=== PATIENT | male | born 1985 | race African-American/Black ===

== ENCOUNTER 2019-09-19 09:01 | Emergency (ER) | payer SELFPAY ==
[~2019-09-19] VITALS: Ht 172.7 cm; Wt 86.2 kg
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
[2019-09-19] MEDS: HYDROcodone/APAP 5/325MG 1 TAB TABLET PO ONE (11:51)
[2019-09-19] MEDS: IBUPROFEN 200 MG TABLET. PO ONE (11:51)
[2019-09-19] MEDS: ORPHENADRINE CITRATE 60 MG/2 ML VIAL. IM ONE (11:52)
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
--- NOTE | 2019-09-19 11:54 | RAD ---
ANKLE RIGHT 3V 09/19/2019 11:21 AM INDICATION: Pain COMPARISON: None available. TECHNIQUE: 3 views of the right ankle are provided. FINDINGS/ IMPRESSION: There is no acute fracture or dislocation. Joint spaces are maintained. Bone mineralization is within normal limits. Regional soft tissues are within normal limits. There is no soft tissue gas or osseous erosion. No radiopaque foreign body. Posterior and plantar calcaneal enthesophytes are present. Electronically signed by: Olivia Greenberg MD (09/19/2019 11:51 AM) [facility]
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
[2019-09-19] MEDS ORDERED: HYDR-3164 PO (12:10)
[2019-09-19] MEDS ORDERED: ORPH100T PO (12:10)
[2019-09-19] MEDS ORDERED: IBUP-1007 PO (12:10)
[2019-09-19] MEDS: cloNIDine HCL 0.1 MG TABLET PO ONE (12:34)
[2019-09-19 13:01] VITALS: BP 188/127
--- NOTE | 2019-09-19 15:48 | EKG ---
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
== END 2019-09-19 13:01 | disposition home or self-care (01) ==
LOC: ER 09:01
DX: M54.2 Cervicalgia (principal); M25.511 Pain in right shoulder; M79.671 Pain in right foot; M25.571 Pain in right ankle and joints of right foot; R07.89 Other chest pain; R51 Headache; V89.2XXA Person injured in unspecified motor-vehicle accident, traffic, initial encounter; Y93.89 Activity, other specified; Y92.89 Other specified places as the place of occurrence of the external cause; Y99.8 Other external cause status
CPT/HCPCS: 70450; 71046; 72125; 73030; 73610; 93005; 96372; 99284; J2360

== ENCOUNTER 2019-09-21 14:47 | Inpatient (IN) | payer SELFPAY ==
[~2019-09-21] VITALS: Ht 170.2 cm; Wt 92.2 kg
[~2019-09-21 14:47] MED LIST: HYDR-3164 PO; IBUP-1007 PO; ORPH100T PO
[2019-09-21] MEDS ORDERED: LABETALOL 20 MG/4 ML DISP.SYRIN. IVP ONE (15:45)
[2019-09-21 15:53] LABS: BASO % 1 % (0-3); EOS # 0.2 x10^3/uL (0.0-0.7); EOS % 3 % (0-3); HEMATOCRIT 46.4 % (39.0-53.0); HEMOGLOBIN 15.1 g/dL (13.0-17.5); LYMPH # 2.1 x10^3/uL (1.0-4.8); LYMPH % 32 % (24-48); MEAN CORPUSCULAR HEMOGLOBIN 25 pg (25-35); MEAN CORPUSCULAR HGB CONC 33 g/dL (31-37); MEAN CORPUSCULAR VOLUME 77 fL (79-100); MONO # 0.3 x10^3/uL (0.0-1.1); MONO % 5 % (0-9); NEUT # 3.8 x10^3/uL (1.8-7.7); NEUT % 60 % (31-73); PLATELET COUNT 303 x10^3/uL (140-400); RED BLOOD COUNT 5.99 x10^6/uL (4.30-5.70); RED CELL DISTRIBUTION WIDTH 14.3 % (11.5-14.5); WHITE BLOOD COUNT 6.4 x10^3/uL (4.0-11.0)
--- NOTE | 2019-09-21 15:57 | RAD ---
PORTABLE CHEST 1V History: Hypertension Comparison: September 19, 2019 Findings: Single view of the chest is submitted. There is no infiltrate, pneumothorax, or effusion. The pericardial cardiac silhouette is within normal limits in size. Impression: 1. There is no radiographic evidence of acute cardiopulmonary disease. Electronically signed by: Feroz Ireland MD (09/21/2019 3:55 PM) [id number]
[2019-09-21 16:07] LABS: CALCIUM 9.1 mg/dL (8.5-10.1); GFR 46.2; POTASSIUM 3.8 mmol/L (3.5-5.1)
[2019-09-21 16:12] LABS: ALBUMIN 3.9 g/dL (3.4-5.0); ALBUMIN/GLOBULIN RATIO 0.9 (1.0-1.7); MAGNESIUM 1.9 mg/dL (1.8-2.4); TOTAL BILIRUBIN 0.4 mg/dL (0.2-1.0); TOTAL PROTEIN 8.3 g/dL (6.4-8.2)
--- NOTE | 2019-09-21 16:36 | EKG ---
[facility] [address] [place] [address] Test Date: 2019-09-21 Test Time: 15:45:28 Pat Name: STEFAN QUINONES Department: Room: Gender: M Chaperone: : 1985 Requested By: JULIANNA CHARLES Order Number: [id number] Reading MD: Measurements Intervals [place] Rate: 96 P: 44 NE: 132 QRS: -9 QRSD: 96 T: 159 QT: 346 QTc: 443 Interpretive Statements SINUS RHYTHM LEFT ATRIAL ABNORMALITY LEFTWARD AXIS INCOMPLETE RIGHT BUNDLE BRANCH BLOCK T ABNORMALITY IN LATERAL LEADS ABNORMAL ECG No previous ECG available for comparison
[2019-09-21] MEDS ORDERED: hydrALAZINE 20 MG/ML VIAL. IVP ONE (17:00)
[2019-09-21] MEDS ORDERED: LORazepam 0.5 MG TABLET PO ONE (19:15)
[2019-09-21] MEDS ORDERED: LABETALOL 20 MG/4 ML DISP.SYRIN. IVP PRN (20:45)
[2019-09-21] MEDS ORDERED: LORazepam 0.5 MG TABLET PO PRN (20:45)
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
[2019-09-21] MEDS ORDERED: amLODIPine BESYLATE 5 MG TABLET PO ONE (21:00)
[2019-09-21] MEDS ORDERED: cloNIDine HCL 0.2 MG TABLET PO ONE (21:30)
[2019-09-21] MEDS ORDERED: MORPHINE SULFATE 4 MG/ML VIAL. IV PRN (21:30)
[2019-09-21] MEDS ORDERED: ONDANSETRON PF 4 MG/2 ML VIAL. IV PRN (21:30)
[2019-09-21] MEDS ORDERED: ACETAMINOPHEN 325 MG TABLET. PO PRN (21:30)
[2019-09-21 21:40] LABS: BILIRUBIN,URINE NEGATIVE (NEG); CLARITY,URINE CLEAR; COLOR,URINE YELLOW; NITRITE,URINE NEGATIVE (NEG); PH,URINE 6.5; PROTEIN,URINE >=300 mg/dL (NEG-TRACE); UROBILINOGEN,URINE 0.2 mg/dL (0.2 mg/dL)
[2019-09-21 21:46] LABS: BACTERIA,URINE 0 /HPF (0-FEW); BARBITURATES NEG (NEG); BENZODIAZEPINES NEG (NEG); CANNABINOIDS NEG (NEG); COCAINE NEG (NEG); METHADONE NEG (NEG); OPIATES NEG (NEG); PHENCYCLIDINE NEG (NEG); SQUAMOUS EPITHELIAL CELL,UR OCC /LPF
[2019-09-21 21:47] LABS: AMPHETAMINE/METHAMPHETAMINE NEG (NEG); WBC,URINE RARE /HPF (0-4)
[2019-09-21 22:45] VITALS: BP 200/122
[2019-09-22] VITALS (7 sets, daily range): BP systolic 109–140; BP diastolic 64–92
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
[2019-09-22] MEDS: cloNIDine HCL 0.2 MG TABLET PO SCH ×3 (06:03→21:15)
[2019-09-22 06:31] LABS: BASO % 1 % (0-3); EOS # 0.2 x10^3/uL (0.0-0.7); EOS % 4 % (0-3); HEMATOCRIT 41.4 % (39.0-53.0); HEMOGLOBIN 13.3 g/dL (13.0-17.5); LYMPH # 2.2 x10^3/uL (1.0-4.8); LYMPH % 39 % (24-48); MEAN CORPUSCULAR HEMOGLOBIN 25 pg (25-35); MEAN CORPUSCULAR HGB CONC 32 g/dL (31-37); MEAN CORPUSCULAR VOLUME 78 fL (79-100); MONO # 0.4 x10^3/uL (0.0-1.1); MONO % 7 % (0-9); NEUT # 2.7 x10^3/uL (1.8-7.7); NEUT % 49 % (31-73); PLATELET COUNT 252 x10^3/uL (140-400); RED BLOOD COUNT 5.33 x10^6/uL (4.30-5.70); RED CELL DISTRIBUTION WIDTH 13.9 % (11.5-14.5); WHITE BLOOD COUNT 5.5 x10^3/uL (4.0-11.0)
[2019-09-22 06:35] LABS: CALCIUM 8.2 mg/dL (8.5-10.1); CREATININE 2.2 mg/dL (0.7-1.3); GFR 41.4; PHOSPHORUS 4.3 mg/dL (2.6-4.7)
[2019-09-22 06:37] LABS: CHOLESTEROL/HDL RATIO 7.6
--- NOTE | 2019-09-22 06:39 | RAD ---
Renal arterial duplex Doppler ultrasound HISTORY: New acute kidney insufficiency and new hypertension diagnosis. FINDINGS: Right renal length 10.7 cm. Normal cortical thickness and echogenicity. Upper pole round 2.6 cm hypoechoic cyst with internal lacelike septations and debris no discrete intracystic solid nodule or vascularity. No hydronephrosis. Right renal artery peak systolic velocity 96 cm/s proximal, 85 cm/s mid segment and 79 cm/s distal. Right renal artery/aorta velocity ratio is 1. Right renal vein is patent. Aorta peak systolic velocity 94 cm/s. IVC not visualized. Left renal length 8.0 cm. There may be mild left renal atrophy although the length of the kidney may be inaccurate as there is limited visualization of the upper and lower poles due to rib shadowing. Normal cortical thickness and echogenicity. No mass or hydronephrosis. Left renal artery peak systolic velocity 58 cm/s proximal, 55 cm/s mid segment and 60 cm second distal. Left renal artery/aorta laceration is less than 1. Left renal vein is patent. Bladder not visualized presumably decompressed. IMPRESSION: No evidence of significant renal arterial stenosis. No hydronephrosis. 2.6 cm pocket cyst of the right kidney with numerous internal septations and debris. This is considered Bosniak 2F. Consider follow-up MRI without and with contrast evaluation versus sonography in 6 months to document stability. Electronically signed by: Juan Franz MD (09/22/2019 6:36 AM) [id number]
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
[2019-09-22] MEDS: HYDROcodone/APAP 5/325MG 1 TAB TABLET PO PRN (12:00)
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
[2019-09-22] MEDS: IV NORMAL SALINE 1000ML BAG 1,000 ML IV SCH ×2 (12:15→23:00)
[2019-09-22] MEDS: FLUTICASONE 50MCG/NASAL SPRAY 16GM BOTTLE. NS SCH (13:30)
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
[2019-09-22] MEDS ORDERED: traZODone 50 MG TABLET. PO PRN ×2 (16:45)
[2019-09-23 02:08] LABS: HEMOGLOBIN A1C 5.9 % (4.8-5.6)
[2019-09-23] MEDS: HYDROcodone/APAP 5/325MG 1 TAB TABLET PO PRN (02:20)
[2019-09-23 02:29] VITALS: BP 158/100
[2019-09-23 03:26] VITALS: BP 127/89
[2019-09-23] MEDS: cloNIDine HCL 0.2 MG TABLET PO SCH ×2 (06:17→15:45)
[2019-09-23 07:00] VITALS: BP 151/103
[2019-09-23] MEDS: FLUTICASONE 50MCG/NASAL SPRAY 16GM BOTTLE. NS SCH (08:49)
[2019-09-23] MEDS ORDERED: amLODIPine BESYLATE 5 MG TABLET PO SCH (09:00)
[2019-09-23 11:00] VITALS: BP 135/93
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
[2019-09-23 11:26] LABS: ALBUMIN 3.1 g/dL (3.4-5.0); CALCIUM 8.3 mg/dL (8.5-10.1); CREATININE 1.8 mg/dL (0.7-1.3); GFR 52.2; PHOSPHORUS 3.2 mg/dL (2.6-4.7); POTASSIUM 4.7 mmol/L (3.5-5.1)
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
[2019-09-23] MEDS ORDERED: FLUT16SP NS (13:50)
[2019-09-23] MEDS ORDERED: AMLO5TAB10 PO (13:50)
[2019-09-23] MEDS ORDERED: CLON0.2T10 PO (13:50)
[2019-09-23] MEDS ORDERED: TRAZ-118 PO (13:50)
--- NOTE | 2019-09-23 13:51 | DISCH ---
DISCHARGE INSTRUCTIONS Condition on Discharge Condition on Discharge: Stable Activity After Discharge Activity Instructions for Disc: Resume previous activity Diet after Discharge Diet after Discharge: Cardiac Checks after Discharge Checks after discharge: Check blood press - daily Contacting the after DC Call your doctor for: If your condition worsens Warfarin Follow-Up Warfarin Follow UP: SEE PCP NEXT WEEK RIMA ANTHONY MD Sep 23, 2019 13:51
[2019-09-23 15:45] VITALS: BP 149/108
== END 2019-09-23 16:14 | disposition home or self-care (01) | DRG 304 ==
LOC: ER 14:47 → 2 SOUTH 17:27
PROVIDERS: ADMIT Internal Medicine; ATTEND Internal Medicine
DX: I16.1 Hypertensive emergency (principal); N17.0 Acute kidney failure with tubular necrosis; F32.9 Major depressive disorder, single episode, unspecified; F41.9 Anxiety disorder, unspecified; F43.0 Acute stress reaction; G47.00 Insomnia, unspecified; I12.9 Hypertensive chronic kidney disease with stage 1 through stage 4 chronic kidney disease, or unspecified chronic kidney disease; N18.3 Chronic kidney disease, stage 3 (moderate); N28.1 Cyst of kidney, acquired; Z82.49 Family history of ischemic heart disease and other diseases of the circulatory system
CPT/HCPCS: 36415; 71045; 80053; 80061; 80069; 80307; 81001; 82553; 83036; 83735; 83880; 84156; 84443; 84484; 85025; 93005; 93975; J0360; J2060; J3490; J7030; G0378